=== PATIENT | male | born 1935 | race Caucasian/White ===

== ENCOUNTER 2019-10-27 09:55 | Inpatient (IN) ==
[2019-10-27 11:00] LABS: Basophils % 0.4 % (0.0-0.8); Eosinophils # 0.1 10*3/uL (0.0-0.87); Eosinophils % 0.7 % (0.00-10.9); Hematocrit 43.5 VOL% (42.0-52.0); Hemoglobin 14.3 GM/DL (14.0-18.0); Immature Granulocytes % 0.5 %; Immature Granulocytes Absolute 0.05 #; Lymphocytes # 1.6 10*3/uL (1.4-4.0); Lymphocytes % 17.3 % (21.2-54.2); Mean Corpuscular HGB Conc 32.9 GM/DL (32-36); Mean Corpuscular Volume 88.2 FL (87-102); Mean Platelet Volume 11.7 FL (9.6-12.0); Neutrophils % 70.1 % (38.7-73.9); Platelet Count 147 T/CUMM (130-400); Red Blood Count 4.93 MC/CUMM (3.8-5.5); Red Cell Distribution Width 14.7 % (9.3-17.3); White Blood Count 9.4 T/CUMM (4-12)
[2019-10-27 11:27] LABS: Albumin 3.3 G/DL (3.4-5.0); Bilirubin,Total 2.3 MG/DL (0.2-1.0); Calcium 8.4 MG/DL (8.5-10.1); Osmolality,Calculated 279.7 MOS/KG (273-304); Total Protein 6.7 G/DL (6.4-8.3)
[2019-10-27] MEDS ORDERED: ALBUTEROL/IPRATROPIUM 3 ML NEB RESP TX STA (11:27)
[2019-10-27] MEDS ORDERED: methylPREDNISolone SOD SUC 125 MG/2 ML VIAL IV STA (11:30)
[2019-10-27] MEDS ORDERED: cefTRIAXone 1,000 MG in SODIUM CHLORIDE 0.9% 100 ML IV STA (11:30)
[2019-10-27] MEDS ORDERED: cefTRIAXone 1,000 MG VIAL ONE (11:30)
[2019-10-27 11:31] LABS: Troponin I 0.044 NG/ML (0.00-0.045)
[2019-10-27] MEDS ORDERED: cefTRIAXone 1,000 MG in SYRINGE 1 EACH IV STA (11:32)
[2019-10-27] MEDS ORDERED: methylPREDNISolone SOD SUC 125 MG/2 ML VIAL ONE (11:32)
[2019-10-27] MEDS ORDERED: SODIUM CHLORIDE 0.9% 1,000 ML IV STA ×2 (11:39→11:41)
[2019-10-27] MEDS ORDERED: ALBUTEROL/IPRATROPIUM 3 ML NEB RESP TX PRN (12:34)
[2019-10-27] MEDS ORDERED: guaiFENesin/DM ER 600-30 MG TABLET PO PRN (12:34)
[2019-10-27] MEDS: AZITHROMYCIN INJ 500 MG in SODIUM CHLORIDE 0.9% 250 ML IV SCH (17:59)
[2019-10-27] MEDS: ENOXAPARIN 40 MG/0.4 ML SYRINGE SUBCUT SCH (18:06)
[2019-10-27] MEDS: FUROSEMIDE 40 MG/4 ML VIAL IV SCH (18:06)
[2019-10-27] MEDS: methylPREDNISolone SOD SUC 40 MG/1 ML VIAL IV SCH (21:52)
[2019-10-28] MEDS: methylPREDNISolone SOD SUC 40 MG/1 ML VIAL IV SCH ×3 (03:28→21:18)
[2019-10-28 05:20] LABS: Basophils % 0.1 % (0.0-0.8); Hemoglobin 13.2 GM/DL (14.0-18.0); Immature Granulocytes % 0.3 %; Immature Granulocytes Absolute 0.03 #; Lymphocytes # 0.6 10*3/uL (1.4-4.0); Lymphocytes % 6.9 % (21.2-54.2); Mean Corpuscular Volume 87.9 FL (87-102); Mean Platelet Volume 12.3 FL (9.6-12.0); Monocytes % 3.5 % (1.7-12.7); Neutrophils % 89.2 % (38.7-73.9); Platelet Count 142 T/CUMM (130-400); Red Blood Count 4.55 MC/CUMM (3.8-5.5); Red Cell Distribution Width 14.6 % (9.3-17.3); White Blood Count 8.9 T/CUMM (4-12)
[2019-10-28 05:54] LABS: Calcium 8.4 MG/DL (8.5-10.1); Risk Ratio 3.69; Thyroid Stimulating Hormone 0.433 uIU/ml (0.358-3.74)
[2019-10-28] MEDS: PANTOPRAZOLE 40 MG TABLET PO SCH (10:01)
[2019-10-28] MEDS: FUROSEMIDE 40 MG/4 ML VIAL IV SCH (10:02)
[2019-10-28] MEDS: cefTRIAXone 1,000 MG in SYRINGE 1 EACH IV SCH (10:02)
[2019-10-28] MEDS: AZITHROMYCIN INJ 500 MG in SODIUM CHLORIDE 0.9% 250 ML IV SCH (10:02)
[2019-10-28] MEDS: ENOXAPARIN 40 MG/0.4 ML SYRINGE SUBCUT SCH (10:21)
[2019-10-28] MEDS: POTASSIUM CHLORIDE 20 MEQ TABLET PO PRN ×2 (18:20→23:27)
[2019-10-28] MEDS: MONTELUKAST 10 MG TABLET PO SCH (23:26)
[2019-10-29] MEDS: POTASSIUM CHLORIDE 20 MEQ TABLET PO PRN ×2 (02:11→04:58)
[2019-10-29 02:47] LABS: Basophils % 0.2 % (0.0-0.8); Hematocrit 41.5 VOL% (42.0-52.0); Hemoglobin 13.6 GM/DL (14.0-18.0); Immature Granulocytes % 0.7 %; Immature Granulocytes Absolute 0.07 #; Lymphocytes # 0.9 10*3/uL (1.4-4.0); Mean Corpuscular HGB Conc 32.8 GM/DL (32-36); Mean Corpuscular Volume 87.7 FL (87-102); Mean Platelet Volume 11.8 FL (9.6-12.0); Monocytes % 5.3 % (1.7-12.7); NRBC # 0.02 10*3/uL; Neutrophils % 85.8 % (38.7-73.9); Platelet Count 176 T/CUMM (130-400); Red Blood Count 4.73 MC/CUMM (3.8-5.5); Red Cell Distribution Width 14.6 % (9.3-17.3); White Blood Count 10.6 T/CUMM (4-12)
[2019-10-29 03:19] LABS: Osmolality,Calculated 285.7 MOS/KG (273-304)
[2019-10-29] MEDS: methylPREDNISolone SOD SUC 40 MG/1 ML VIAL IV SCH ×3 (04:58→20:28)
[2019-10-29] MEDS ORDERED: NON-FORMULARY MEDICATION (Metoprolol Succinate 25 MG) PO SCH (09:00)
[2019-10-29] MEDS: PANTOPRAZOLE 40 MG TABLET PO SCH (09:48)
[2019-10-29] MEDS: cefTRIAXone 1,000 MG in SYRINGE 1 EACH IV SCH (09:48)
[2019-10-29] MEDS: METOPROLOL SUCCINATE XL 25 MG TABLET PO SCH ×2 (09:48→20:28)
[2019-10-29] MEDS: ENOXAPARIN 40 MG/0.4 ML SYRINGE SUBCUT SCH (09:48)
[2019-10-29] MEDS: FUROSEMIDE 40 MG/4 ML VIAL IV SCH (09:48)
[2019-10-29] MEDS: amLODIPine 10 MG TABLET PO SCH (09:48)
[2019-10-29] MEDS ORDERED: FUROSEMIDE 40 MG TABLET PO ONE (12:00)
[2019-10-29] MEDS ORDERED: AZITHROMYCIN 250 MG TABLET PO SCH (15:00)
[2019-10-29] MEDS: MONTELUKAST 10 MG TABLET PO SCH (20:28)
[2019-10-30 04:50] LABS: Basophils % 0.2 % (0.0-0.8); Hemoglobin 14.2 GM/DL (14.0-18.0); Immature Granulocytes % 1.9 %; Immature Granulocytes Absolute 0.18 #; Lymphocytes # 0.9 10*3/uL (1.4-4.0); Lymphocytes % 9.6 % (21.2-54.2); Mean Corpuscular Volume 87.8 FL (87-102); Mean Platelet Volume 11.5 FL (9.6-12.0); Monocytes % 4.8 % (1.7-12.7); Neutrophils % 83.5 % (38.7-73.9); Platelet Count 196 T/CUMM (130-400); Red Cell Distribution Width 14.6 % (9.3-17.3); White Blood Count 9.7 T/CUMM (4-12)
[2019-10-30] MEDS: methylPREDNISolone SOD SUC 40 MG/1 ML VIAL IV SCH (05:00)
[2019-10-30 05:05] LABS: Calcium 8.9 MG/DL (8.5-10.1)
[2019-10-30 07:53] VITALS: BP 150/68
[2019-10-30] MEDS: METOPROLOL SUCCINATE XL 25 MG TABLET PO SCH (08:53)
[2019-10-30] MEDS: ENOXAPARIN 40 MG/0.4 ML SYRINGE SUBCUT SCH (08:53)
[2019-10-30] MEDS: amLODIPine 10 MG TABLET PO SCH (08:53)
[2019-10-30] MEDS: PANTOPRAZOLE 40 MG TABLET PO SCH (08:54)
[2019-10-30] MEDS: cefTRIAXone 1,000 MG in SYRINGE 1 EACH IV SCH (08:54)
[2019-10-30] MEDS ORDERED: FUROSEMIDE 40 MG TABLET PO SCH (09:00)
== END 2019-10-30 11:24 | disposition home or self-care (01) | DRG 871 ==
LOC: N.ED 09:55 → N.EDINP 12:34 → N.2E 15:19
PROVIDERS: ADMIT Emergency Medicine; ATTEND Emergency Medicine